=== PATIENT | female | born 1995 | race Caucasian/White ===

== ENCOUNTER 2021-02-25 19:47 | Emergency (ER) | payer MEDICAID ==
[~2021-02-25] VITALS: Ht 165.1 cm; Wt 90.7 kg
[2021-02-25 20:16] VITALS: BP 136/88
[2021-02-25] MEDS ORDERED: TDAP [DIPH/PERTUSSIS/TET] 0.5 ML VIAL IM ONE ×2 (20:30→20:32)
[2021-02-25] MEDS ORDERED: IBUP-1955 PO (21:10)
[2021-02-25] MEDS ORDERED: DOXY100C41 PO (21:10)
[2021-02-25] MEDS ORDERED: DOXYCYCLINE HYCLATE (100 MG) 100 MG TABLET ONE (21:12)
[2021-02-25] MEDS ORDERED: DOXYCYCLINE HYCLATE (100 MG) 100 MG TABLET PO ONE (21:30)
[2021-02-26] MEDS ORDERED: CLIN300C12 PO (17:38)
[2021-02-26] MEDS ORDERED: LEVO750T46 PO (17:38)
[2021-02-26] MEDS ORDERED: DICL50TA7 PO (17:39)
[2021-02-26] MEDS ORDERED: BACI3.5O23 OP (17:40)
== END 2021-02-25 21:15 | disposition home or self-care (01) ==
LOC: ER 19:51
DX: L03.116 Cellulitis of left lower limb (principal); F17.200 Nicotine dependence, unspecified, uncomplicated; Z60.2 Problems related to living alone; Z79.899 Other long term (current) drug therapy
CPT/HCPCS: 73610-TC; 90715

== ENCOUNTER 2021-02-26 15:36 | Emergency (ER) | payer MEDICAID ==
[~2021-02-26] VITALS: Ht 167.6 cm; Wt 90.7 kg
[~2021-02-26 15:36] MED LIST: DOXY100C41 PO; IBUP-1955 PO
[2021-02-26 15:52] VITALS: BP 133/81
[2021-02-26] MEDS ORDERED: CLIN300C12 PO (17:38)
[2021-02-26] MEDS ORDERED: LEVO750T46 PO (17:38)
[2021-02-26] MEDS ORDERED: DICL50TA7 PO (17:39)
[2021-02-26] MEDS ORDERED: BACI3.5O23 OP (17:40)
--- NOTE | 2021-02-26 17:45 | NUR ---
SEEN AND EXAMINED BY .
--- NOTE | 2021-02-26 17:50 | NUR ---
WOUND DRESSING DONE.
[2021-02-26] MEDS ORDERED: BACITRACIN ZINC OINT PACKET 1 EA PACKET TP ONE (18:00)
--- NOTE | 2021-02-26 18:00 | NUR ---
Patient discharged to home in stable condition. Written and verbal after care instructions given. Patient verbalizes understanding of instruction.
== END 2021-02-26 18:01 | disposition home or self-care (01) ==
LOC: ER 15:36
DX: S91.032A Puncture wound without foreign body, left ankle, initial encounter (principal); L03.116 Cellulitis of left lower limb; F17.200 Nicotine dependence, unspecified, uncomplicated; Z60.2 Problems related to living alone; Z79.899 Other long term (current) drug therapy; T63.511A Toxic effect of contact with stingray, accidental (unintentional), initial encounter; Y92.89 Other specified places as the place of occurrence of the external cause; Y93.89 Activity, other specified; Y99.8 Other external cause status

== ENCOUNTER 2022-04-11 07:19 | Emergency (ER) | payer OTHER ==
[~2022-04-11] VITALS: Ht 167.6 cm; Wt 90.7 kg
[~2022-04-11 07:19] MED LIST changes: +BACI3.5O23 OP; +CLIN300C12 PO; +DICL50TA7 PO; +DOXY-326 PO; -DOXY100C41 PO; +LEVO750T46 PO
--- NOTE | 2022-04-11 07:25 | NUR ---
BIB SELF C/O L EAR PAIN AND HARD OF HEARING ON THE LEFT EAR X 1 WEEK "I THINK I HAVE A SINUS INFECTION". AMBULATORY, [id number]
--- NOTE | 2022-04-11 07:30 | NUR ---
AT BEDSIDE FOR EVAL.
[2022-04-11] MEDS ORDERED: FLUT16SP16 BNOSTRILS (07:36)
--- NOTE | 2022-04-11 07:38 | NUR ---
Patient discharged to home in stable condition. Written and verbal after care instructions given. Patient verbalizes understanding of instruction.
[2022-04-11 07:39] VITALS: BP 136/88
== END 2022-04-11 07:39 | disposition home or self-care (01) ==
LOC: ER 07:20
DX: J30.9 Allergic rhinitis, unspecified (principal); H92.02 Otalgia, left ear; F17.200 Nicotine dependence, unspecified, uncomplicated; Z60.2 Problems related to living alone; Z79.899 Other long term (current) drug therapy

== ENCOUNTER 2022-06-03 20:30 | Emergency (ER) | payer OTHER ==
[~2022-06-03] VITALS: Ht 165.1 cm; Wt 90.7 kg
[~2022-06-03 20:30] MED LIST changes: +FLUT16SP16 BNOSTRILS
[2022-06-03 20:34] VITALS: BP 144/78
[2022-06-03] MEDS ORDERED: AMOX500T2 PO (20:52)
[2022-06-03] MEDS ORDERED: NAPR-1009 PO (20:52)
[2022-06-03] MEDS ORDERED: DEXAMETHASONE SOD PHOSPHATE 10 MG/ML VIAL ONE (20:56)
--- NOTE | 2022-06-03 20:58 | NUR ---
Patient discharged to home in stable condition. Written and verbal after care instructions given. Patient verbalizes understanding of instruction.
[2022-06-03] MEDS ORDERED: DEXAMETHASONE SOD PHOSPHATE 4 MG/ML VIAL IM ONE (21:00)
== END 2022-06-03 20:59 | disposition home or self-care (01) ==
LOC: ER 20:34
DX: J02.8 Acute pharyngitis due to other specified organisms (principal); R13.10 Dysphagia, unspecified; J02.0 Streptococcal pharyngitis; F17.200 Nicotine dependence, unspecified, uncomplicated; Z60.2 Problems related to living alone; Z79.899 Other long term (current) drug therapy
CPT/HCPCS: 99283; 96372; J1100